=== PATIENT | female | born 1950 | race Caucasian/White ===

== ENCOUNTER 2017-08-31 11:48 | Outpatient (CLI) | payer OTHER ==
--- NOTE | 2017-08-31 14:36 | RAD ---
CHEST TWO VIEWS: History: COPD. Comparison: None. FINDINGS: There is airspace opacity in the right lung base. Lungs are overall hyperinflated. No pneumothorax. Cardiac silhouette and mediastinal contour is within normal limits. IMPRESSION: 1. Right lower lobe pneumonia. Recommend follow up after treatment. 2. Lung hyperinflation suggestive of COPD. POS: [facility]
== END 2017-08-31 11:49 | disposition home or self-care (01) ==
LOC: NAV RAD 11:48
PROVIDERS: ATTEND Internal Medicine
DX: J44.9 Chronic obstructive pulmonary disease, unspecified (principal); J18.9 Pneumonia, unspecified organism
CPT/HCPCS: 71020

== ENCOUNTER 2017-09-26 15:39 | Outpatient (CLI) | payer OTHER ==
--- NOTE | 2017-09-26 19:38 | RAD ---
2 VIEW CHEST: Date: 09/26/17 COMPARISON: 08/31/17. INDICATION: Pneumonia. FINDINGS: There is a persistent region of medial right basilar opacity. There is newly developed left basilar, linear density. There is hyperinflation of lungs indicating COPD. Chest is otherwise similar in [place]. IMPRESSION: 1. Persistence of medial right basilar opacity. Recommend follow-up CT thorax given persistent find ings. 2. Newly developed left basilar atelectasis. CODE T. POS: [facility]
== END 2017-09-26 15:40 | disposition home or self-care (01) ==
LOC: NAV RAD 15:39
PROVIDERS: ATTEND Internal Medicine
DX: J18.9 Pneumonia, unspecified organism (principal); R91.8 Other nonspecific abnormal finding of lung field; J98.11 Atelectasis
CPT/HCPCS: 71020

== ENCOUNTER 2018-04-26 11:34 | Emergency (ER) | payer OTHER, MEDICARE ==
--- NOTE | 2018-04-26 12:22 | RAD ---
PA AND LATERAL VIEWS CHEST: HISTORY: Cough. FINDINGS: Comparison is made with the exam of 09/26/17. The heart size is normal. Changes of COPD are present. There is patchy consolidation in the left lo wer lung. No pneumothoraces are seen. A small left pleural effusion may be present. IMPRESSION: Left lower lobe pneumonia. POS: [facility]
[2018-04-26 12:30] LABS: #Basophils 0.1 thou/uL (0.0-0.2); #Eosinphils 0.2 thou/uL (0.0-0.7); #Lymphocytes 0.7 thou/uL (1.20-3.40); #Monocytes 0.7 thou/uL (0.11-0.59); #Neutrophils 7.4 thou/uL (1.40-6.50); %Basophils 1.6 % (0.0-1.0); %Eosinophils 1.7 % (0.0-10.0); %Lymphocytes 8.1 % (21.0-51.0); %Monocytes 7.5 % (0.0-10.0); %Neutrophils 81.2 % (42.0-75.0); Hemoglobin 10.9 g/dL (12.0-16.0); Mean Corpuscular HGB CONC 31.4 g/dL (32.0-36.0); Mean Corpuscular Hemoglobin 26.6 pg (27.0-31.0); Mean Corpuscular Volume 84.8 fl (81.0-99.0); Mean Platelet Volume 5.5 fL (7.4-10.4); Platelet Count 367 thou/uL (130-400); RBC Distribution Width 11.8 % (11.5-14.5); White Blood Cell (WBC) Count 9.1 thou/uL (4.8-10.8)
[2018-04-26 12:45] LABS: ALT (SGPT) 11 U/L (8-55); AST (SGOT) 14 U/L (5-34); Albumin 3.5 g/dL (3.4-4.8); Alkaline Phosphatase 69 U/L (40-150); Anion Gap 13 mmol/L (10-20); BUN (Urea Nitrogen) 9 mg/dL (9.8-20.1); Bilirubin, Total 0.4 mg/dL (0.2-1.2); Calc. Creatinine Clearance 0 mL/min (70-130); Calcium 10.1 mg/dL (7.8-10.44); Carbon Dioxide 29 mmol/L (23-31); Chloride 102 mmol/L (98-107); Estimated GFR-MDRD Greater than 90; Globulin 3.7 g/dL (2.4-3.5); Glucose 97 mg/dL (80-115); Potassium 3.9 mmol/L (3.5-5.1); Protein, Total 7.2 g/dL (6.0-8.3); Sodium 140 mmol/L (136-145)
[2018-04-26 13:00] LABS: Bilirubin Negative (Negative); Blood, Urine Small (Negative); Clarity Clear (Clear); Glucose, Urine (Dipstick) Negative (Negative); Leukocyte Negative (Negative); Nitrite Negative (Negative); Protein, Urine (Dipstick) Negative (Neg-Trace); Specific Gravity, Urine 1.015 (1.005-1.030)
[2018-04-26] MEDS ORDERED: cefTRIAXone\\ROCEPHIN 1 GM VIAL ONE (13:06)
[2018-04-26 13:21] LABS: Bacteria/HPF Rare-Few HPF (None Seen); RBC/HPF 0-3 HPF (0-3); Squamous Epithelial 0-3 HPF (0-3); WBC/HPF 0-3 HPF (0-3)
== END 2018-04-26 13:40 | disposition home or self-care (01) ==
LOC: NAV ERS 11:34
DX: J18.9 Pneumonia, unspecified organism (principal); I10 Essential (primary) hypertension; J44.9 Chronic obstructive pulmonary disease, unspecified; Z79.891 Long term (current) use of opiate analgesic; Z79.899 Other long term (current) drug therapy
CPT/HCPCS: 71046; 80053; 81003; 81015; 83605; 85025; 87040; 96374; J0696

== ENCOUNTER 2018-05-21 20:01 | Emergency (ER) | payer OTHER, MEDICARE ==
[2018-05-21] MEDS ORDERED: diphenhydrAMINE 50 MG/ML VIAL ONE (20:24)
== END 2018-05-21 21:10 | disposition home or self-care (01) ==
LOC: NAV ERS 20:01
DX: T78.40XA Allergy, unspecified, initial encounter (principal); J44.9 Chronic obstructive pulmonary disease, unspecified; Z87.891 Personal history of nicotine dependence; Z79.899 Other long term (current) drug therapy
CPT/HCPCS: 96372; J1200

== ENCOUNTER 2019-03-19 14:52 | Emergency (ER) | payer OTHER, MEDICARE | END 2019-03-19 15:39 | disposition home or self-care (01) | LOC: NAV ERS 14:52 | DX: R22.32 Localized swelling, mass and lump, left upper limb (principal); J44.9 Chronic obstructive pulmonary disease, unspecified; Z87.891 Personal history of nicotine dependence | CPT/HCPCS: 99283 ==

== ENCOUNTER 2021-09-21 14:16 | Outpatient (CLI) | payer BC, MEDICARE | END 2021-09-21 14:17 | disposition home or self-care (01) | LOC: NAV RAD 14:16 | PROVIDERS: ATTEND Internal Medicine | DX: R05.9 Cough, unspecified (principal) | CPT/HCPCS: 71046 ==

== ENCOUNTER 2024-10-04 09:29 | Outpatient (CLI) | payer MEDICARE | END 2024-10-04 09:30 | disposition home or self-care (01) | LOC: NAV RAD 09:29 | PROVIDERS: ATTEND Nurse Practitioner Family | DX: R22.41 Localized swelling, mass and lump, right lower limb (principal) ==

== ENCOUNTER 2024-10-31 11:33 | Outpatient (CLI) | payer MEDICARE | END 2024-10-31 11:34 | disposition home or self-care (01) | LOC: NAV RAD 11:33 | PROVIDERS: ATTEND Student in an Organized Health Care Education/Training Program | DX: J18.9 Pneumonia, unspecified organism (principal); I70.0 Atherosclerosis of aorta; J43.9 Emphysema, unspecified | CPT/HCPCS: 71046 ==

== ENCOUNTER 2024-11-05 21:11 | Emergency (ER) | payer MEDICARE ==
[~2024-11-05 21:11] MED LIST: Iopamidol 370 76% 100 ML VIAL ONE
[2024-11-05] MEDS ORDERED: methylPREDNISolone Sod Succ/PF 125 MG/2 ML VIAL ONE (21:33)
[2024-11-05 21:49] LABS: Hematocrit 35.2 % (36.0-47.0); Hemoglobin 11.4 g/dL (12.0-16.0); Mean Corpuscular HGB CONC 32.4 g/dL (32.0-36.0); Mean Corpuscular Hemoglobin 26.2 pg (27.0-31.0); Mean Platelet Volume 6.7 fL (7.4-10.4); Platelet Count 205 10x3/uL (130-400); RBC Distribution Width 11.7 % (11.5-14.5); Red Blood Cell (RBC) Count 4.34 mill/uL (4.20-5.40); White Blood Cell (WBC) Count 8.6 10x3/uL (4.8-10.8)
[2024-11-05 21:50] LABS: Base Excess-Venous 5.9 mmol/L (-2.0 to 3.0); Bicarbonate (HCO3v) 31.1 mmol/L (22.0-28.0); CO2 Tension (PvCO2) 46.6 mmHg (42.0-51.0); Calcium, Ionized 1.17 mmol/L (1.15-1.33); Chloride 97 mmol/L (98-107); Hemoglobin - Calc 13.1 g/dL (12.0-16.0); Potassium 3.2 mmol/L (3.5-5.1); Sodium 140 mmol/L (138-145); T. Carbon Dioxide 32.6 mmol/L (22.0-28.0)
[2024-11-05] MEDS ORDERED: Sodium Chloride 0.9% 1,000 ML ONE (21:51)
[2024-11-05] MEDS ORDERED: Ondansetron PF 4 MG/2 ML Vial ONE (21:51)
[2024-11-05 22:02] LABS: ALT (SGPT) 11 U/L (8-55); AST (SGOT) 12 U/L (5-34); Albumin 2.9 g/dL (3.4-4.8); Alkaline Phosphatase 104 U/L (40-110); Anion Gap 12 mmol/L (10-20); BUN (Urea Nitrogen) 8 mg/dL (9.8-20.1); Bilirubin, Total 0.4 mg/dL (0.2-1.2); Calc. Creatinine Clearance 0 mL/min (70-130); Calcium 9.2 mg/dL (7.8-10.44); Carbon Dioxide 28 mmol/L (23-31); Chloride 100 mmol/L (98-107); Estimated GFR 91; Globulin 4.6 g/dL (2.4-3.5); Glucose 160 mg/dL (83-110); Potassium 3.2 mmol/L (3.5-5.1); Protein, Total 7.5 g/dL (5.8-8.1); Sodium 137 mmol/L (136-145)
[2024-11-05 22:03] LABS: Troponin I 0.025 ng/mL (< 0.028)
[2024-11-05 22:11] LABS: Eosinophils 1 % (0-10); Lymphocytes 11 % (21-51); MDiff Complete? YES; Monocytes 13 % (0-10); Neutrophil 73 % (42-75); Platelet Adequacy Comment Appears Adequate
[2024-11-05] MEDS ORDERED: Doxycycline 100 MG CAP ONE (22:24)
== END 2024-11-05 23:59 | disposition short-term general hospital (02) ==
LOC: NAV ERS 21:11
DX: J44.1 Chronic obstructive pulmonary disease with (acute) exacerbation (principal); R00.0 Tachycardia, unspecified; R09.02 Hypoxemia; Z85.820 Personal history of malignant melanoma of skin; Z87.891 Personal history of nicotine dependence
CPT/HCPCS: 71045; 71275; 80053; 82330; 82435; 82803; 84132; 84295; 84484; 85014; 85025; 85379; 93005; 96374; 96375; 99285; J2405; J2919; J7030; Q9967